=== PATIENT | female | born 1965 | race Caucasian/White ===

== ENCOUNTER → 2018-08-05 | Emergency (ER) | payer OTHER ==
[~2018-08-05] VITALS: Ht 170.2 cm; Wt 95.3 kg
[~2018-08-05] MED LIST: ATORVASTATIN CA40 MG PO; CIPRO500 M1 PO; CRANBERRY500 M3 PO; LISINOPRIL10 MG PO; MANNOSE50 GM PO; NORCO 5-325 TA1 EAC1 PO; PYRIDIUM200 MG PO; VITAMINC500 PO
[2018-08-05 15:59] LABS: URINE BILIRUBIN NEGATIVE (Negative); URINE BLOOD 2+ (Negative); URINE CLARITY CLOUDY; URINE COLOR YELLOW; URINE GLUCOSE-RANDOM NEGATIVE (Negative); URINE KETONES NEGATIVE (Negative); URINE LEUKOCYTES-REFLEX 3+ (Negative); URINE NITRITE-REFLEX NEGATIVE (Negative); URINE PROTEIN 1+ (Negative); URINE UROBILINOGEN 0.2 E.U./dl (0.2-1.0)
[2018-08-05 16:07] LABS: BACTERIA-REFLEX >30 Many /HPF (None Seen); CASTS None Seen /LPF (None Seen); CRYSTALS None Seen /LPF (None Seen); SQUAMOUS 4-10 Moderate /LPF (0-3); URINE RBC 3-10 Few /HPF (0-2); URINE WBC-REFLEX >25 Many /HPF (0-5)
[2018-08-05 16:15] LABS: HEMATOCRIT 42.1 % (37.0-47.0); HEMOGLOBIN 14.1 gm/dL (12.0-15.0); MCH 29.2 pg (26.0-34.0); MCHC 33.5 g/dL (28.0-37.0); MCV 87.2 fL (80.0-100.0); MPV 8.8 fl. (7.2-11.1); NUCLEATED RBCS 0 /100WBC; PLATELET COUNT* 219 thou/uL (150-400); RBC 4.83 mil/uL (4.20-5.00); RDW-CV 13.8 % (10.5-14.5); WBC 19.6 thou/uL (4.0-11.0)
[2018-08-05 16:19] LABS: CALCIUM 9.3 mg/dL (8.5-10.1); CREATININE 1.1 mg/dL (0.6-1.3); POTASSIUM 3.9 mmol/L (3.5-5.1)
[2018-08-05 16:57] LABS: ABSOLUTE LYMPHOCYTES 1.2 thou/uL (0.8-5.3); ABSOLUTE NEUTROPHILS 17.4 thou/uL (1.6-8.1)
[2018-08-05 16:58] LABS: PLATELET ESTIMATE ADEQUATE
[2018-08-05 18:31] VITALS: BP 106/47
== END ==
LOC: M.ERS 15:41
PROVIDERS: Nurse Practitioner
DX: N12 Tubulo-interstitial nephritis, not specified as acute or chronic (principal); F17.200 Nicotine dependence, unspecified, uncomplicated; I10 Essential (primary) hypertension; E78.00 Pure hypercholesterolemia, unspecified; Z88.0 Allergy status to penicillin; Z87.442 Personal history of urinary calculi; Z90.710 Acquired absence of both cervix and uterus; Z90.49 Acquired absence of other specified parts of digestive tract

== ENCOUNTER 2018-08-07 05:47 | Inpatient (IN) | payer OTHER ==
[~2018-08-07] VITALS: Ht 152.4 cm; Wt 97.1 kg
--- NOTE | ~2018-08-07 | CON ---
[address] [address] CONSULTATION Name: BENJAMIN TILLEY Room: [address] IN M.R.#: [id number] Admission: 08/07/18 Attend Phys: Norbert Villarreal, Discharge: 08/10/18 Date of : 69 Report #: [id number] THIS REPORT FOR: //name// CC: Alena Darlene Villarreal HISTORY OF PRESENT ILLNESS: This is a pleasant 53-year-old female who was admitted with pyelonephritis infection. The GI Service has been consulted for evaluation of elevated liver enzymes. The patient reports she presented with back pain and fevers and was treated for pyelonephritis. The patient denies a prior history of hepatitis, jaundice or pruritus. The patient denies any abdominal pain, nausea, vomiting, diarrhea or weight loss. PAST SURGICAL HISTORY: Significant for hysterectomy in 1993, cholecystectomy in 1998. PAST MEDICAL HISTORY: Significant for hypertension and hyperlipidemia. SOCIAL HISTORY: The patient denies smoking, alcohol or recreational drug use. FAMILY HISTORY: There is no family history of colorectal cancer. REVIEW OF SYSTEMS: A comprehensive 10-point review of systems is negative, except what is mentioned in the HPI. PHYSICAL EXAMINATION: VITAL SIGNS: Temperature 36.4, pulse rate 61, respirations 16 and blood pressure 158/90. GENERAL: The patient is alert, awake and oriented x 3. HEENT: Pupils are equal, round and reactive to light and accommodation. Mucous membranes are moist. There is no congestion. LUNGS: Clear to auscultation bilaterally. CARDIOVASCULAR EXAMINATION: Rate and rhythm regular, S1, S2 present. ABDOMEN: Soft. There is no distention, guarding or rigidity. EXTREMITIES: Warm and well perfused. There is no edema. SKIN: Warm and dry. LABORATORY DATA: Hemoglobin 11.9, hematocrit 35.4 and platelet count 199,000 and WBC count 8.6. Sodium 102, potassium 3.6, chloride 107, bicarbonate 23, BUN 7 and creatinine 0.8. Total bilirubin 0.4, AST 24, ALT 92 and alkaline phosphatase 353. Total bilirubin 0.4. Abdominal ultrasound, normal appearance of both kidneys. Abnormality on CAT scan is not seen on ultrasound. There is no lymph node. The patient has had prior cholecystectomy. Normal ultrasound. ASSESSMENT AND PLAN: This is a pleasant 53-year-old female with past medical history of hypertension and hyperlipidemia, admitted [place] [address] CONSULTATION Name: BENJAMIN TILLEY Room: [address]#: [id number] Admission: 08/07/18 Attend Phys: Norbert Villarreal, Discharge: 08/10/18 Date of : 69 Report #: [id number] subsequently treated for it. GI service has been consulted for evaluation of elevated liver enzymes. AST is normal, ALT is 94 and alkaline phosphatase is 353 with normal total bilirubin. The patient does not have any other signs of chronic liver disease at this time. I will recommend getting a repeat comprehensive metabolic panel in 2-4 weeks' time as outpatient and we will pursue further workup if that remains elevated. At this time, I suspect her elevated liver enzymes is related to cholestasis induced by sepsis from the pyelonephritis. Please call the GI service for any questions. Thank you for the consult. By: [id number] Campo MD /nt
[2018-08-07 05:58] VITALS: BP 128/56
[2018-08-07 06:32] LABS: URINE BLOOD 2+ (Negative); URINE CLARITY CLEAR; URINE COLOR DARK YELLOW; URINE GLUCOSE-RANDOM TRACE (Negative); URINE KETONES NEGATIVE (Negative); URINE LEUKOCYTES-REFLEX TRACE (Negative); URINE PROTEIN 1+ (Negative)
[2018-08-07 06:37] LABS: ICTOTEST (BILI CONFIRMATORY) Negative (Negative); URINE BILIRUBIN 1+ (Negative); URINE NITRITE-REFLEX POSITIVE (Negative)
[2018-08-07 06:38] LABS: HEMOGLOBIN 12.9 gm/dL (12.0-15.0); MCH 29.5 pg (26.0-34.0); MCHC 33.9 g/dL (28.0-37.0); MPV 8.9 fl. (7.2-11.1); NUCLEATED RBCS 0 /100WBC; PLATELET COUNT* 190 thou/uL (150-400); RBC 4.37 mil/uL (4.20-5.00); RDW-CV 13.6 % (10.5-14.5); WBC 11.2 thou/uL (4.0-11.0)
[2018-08-07 06:44] LABS: CALCIUM 9.3 mg/dL (8.5-10.1); CREATININE 0.9 mg/dL (0.6-1.3); POTASSIUM 3.7 mmol/L (3.5-5.1)
[2018-08-07 06:47] LABS: BACTERIA-REFLEX 1-9 Few /HPF (None Seen); CASTS None Seen /LPF (None Seen); CRYSTALS None Seen /LPF (None Seen); MUCUS 0-3 Light strn/LPF (None Seen); SQUAMOUS 0-3 Few /LPF (0-3); URINE RBC 3-10 Few /HPF (0-2); URINE WBC-REFLEX 0-5 Rare /HPF (0-5)
[2018-08-07 06:49] LABS: ALBUMIN 2.8 g/dL (3.4-5.0); TOTAL BILIRUBIN 1.5 mg/dL (<0.1-1.0); TOTAL PROTEIN 6.9 g/dL (6.4-8.2)
[2018-08-07 07:12] LABS: ABSOLUTE LYMPHOCYTES 1.3 thou/uL (0.8-5.3); ABSOLUTE MONOCYTES 0.3 thou/uL (0.0-1.2); ABSOLUTE NEUTROPHILS 9.5 thou/uL (1.6-8.1); ANISOCYTOSIS 1+; PLATELET ESTIMATE ADEQUATE; POIKILOCYTOSIS 1+
[2018-08-07 07:41] VITALS: BP 112/63
[2018-08-07 07:45] VITALS: BP 112/63
--- NOTE | 2018-08-07 11:14 | NUR ---
SW met with pt to complete initial assessment, introduce self, and SW role. Pt was sleeping but awoke to say hello. Pt dtr bedside. Pt lives with pt dtr. Pt is independent at home. Pt did not express any dc needs at this time. SW to continue to follow to assist with safe dc planning.
--- NOTE | 2018-08-07 12:58 | NUR ---
Nutrition: Consult for poor intake. Pt admitted with pyelonephritis. Wt: 214#. BG 129, alb 2.8. H/o GB removal, HTN, UTI, renal stones, hyperchol. No N/V today. On clear liquid diet today. Inadequate oral intake R/T diet order AEB poor intake and CLD ordered. Advance pt's diet in timely manner, as appropriate. Mild risk. Will follow per protocol.
[2018-08-07 16:30] VITALS: BP 128/67
--- NOTE | 2018-08-07 18:28 | NUR ---
VSS-AFEBRILE. C/O LEFT FLANK PAIN THAT IS STABBING IN NATURE AND IS PARTIALLY RELIEVED WITH IV MORPHINE. LUNGS CLEAR-ROOM AIR. MILD NAUSEA WITH NO VOMITING SINCE ADMISSION. ACTIVE BS. TOLERATING CLEAR LIQUID DIET. PLACED ON FALL PRECAUTIONS DUE TO EPISODE OF SYNCOPE AT HOME. VERBALIZED UNDERSTANDING OF PLAN OF CARE, AND KNOWS TO CALL FOR ASSISTANCE WHEN NEEDING TO GET OUT OF BED. SCD'S IN PLACE. VOIDING WITHOUT DIFFICULTY, CLOUDY, ORANGE URINE.
[2018-08-08] VITALS: BP 106/40
--- NOTE | 2018-08-08 04:13 | NUR ---
PATIENT TEARFUL DURING THE NIGHT. PT CONTINUED TO SAY SHE WAS OK. PT WAS ABLE TO SLEEP. PT REQUESTED PAIN MEDICATION X2 DURING THIS SHIFT. PT HAD NEW IV PLACED IN LT HAND AFTER THREE ATTEMPTS. FLUIDS INFUSING PER DR ORDER. PT USES CALL LIGHT APPROPRIATELY FOR ASSISTANCE TO BATHROOM. PT WEARING SCD'S. PT DENIES NEEDS AT THIS TIME. FREQUENTLY USED ITEMS AND CALL LIGHT WITHIN REACH AND BED ALARM ON. WILL CONTINUE TO MONITOR.
[2018-08-08 04:45] LABS: HEMATOCRIT 34.9 % (37.0-47.0); HEMOGLOBIN 11.8 gm/dL (12.0-15.0); MCH 29.5 pg (26.0-34.0); MCHC 33.9 g/dL (28.0-37.0); MPV 9.5 fl. (7.2-11.1); RBC 4.01 mil/uL (4.20-5.00); RDW-CV 13.9 % (10.5-14.5); WBC 7.4 thou/uL (4.0-11.0)
[2018-08-08 04:53] LABS: CALCIUM 8.8 mg/dL (8.5-10.1); CREATININE 0.8 mg/dL (0.6-1.3); MAGNESIUM 1.8 mg/dL (1.8-2.4); POTASSIUM 3.4 mmol/L (3.5-5.1)
[2018-08-08 07:45] VITALS: BP 121/71
[2018-08-08 15:48] VITALS: BP 147/82
--- NOTE | 2018-08-08 16:35 | NUR ---
PATIENT HAS BEEN ALERT AND ORIENTED TODAY, VERY PLEASANT. UP WITH STAND BY TO THE BATHROOM, SHOWERED INDEPENDENTLY TODAY. DAUGHTER HAS BEEN AT BEDSIDE TODAY. VITAL SIGNS HAVE BEEN STABLE ON ROOM AIR. SOME PAIN THAT IS CONTROLLED WITH IV PAIN MEDICATIONS. CALL LIGHT IS IN REACH, WILL CONTINUE TO MONITOR.
--- NOTE | 2018-08-08 17:19 | NUR ---
ASSUMED CARE OF PT AT 1645. PT IS UP SITTING IN BEDSIDE CHAIR. READ AND AGREE WITH ASSESSMENT. EDUCATION GIVEN ON DEMAND. HOURLY ROUNDING COMPLETE.
[2018-08-09] VITALS: BP 155/81
[2018-08-09 04:29] LABS: HEMATOCRIT 33.8 % (37.0-47.0); HEMOGLOBIN 11.5 gm/dL (12.0-15.0); MCH 29.5 pg (26.0-34.0); MCHC 34.1 g/dL (28.0-37.0); MCV 86.5 fL (80.0-100.0); MPV 8.6 fl. (7.2-11.1); RBC 3.91 mil/uL (4.20-5.00); WBC 8.3 thou/uL (4.0-11.0)
--- NOTE | 2018-08-09 04:45 | NUR ---
PATIENT SLEPT IN RECLINER ALL NIGHT. PT C/O ITCHING ON HEAD AND CHEST. ONE TIME ORDER RECEIVED FOR BENEDRYL PO AND LEVEQUIN AND MORPHINE DC'D. PT SLEEPING AT THIS TIME. K-PAD PROVIDED FOR PAIN. PT UP AD KERRI IN ROOM TO BATHROOM. PT DENIES NEEDS AT THIS TIME. FREQUENTLY USED ITEMS AND CALL LIGHT WITHIN REACH. WILL CONTINUE TO MONITOR.
[2018-08-09 05:52] LABS: ALBUMIN 2.5 g/dL (3.4-5.0); CALCIUM 8.7 mg/dL (8.5-10.1); CREATININE 0.8 mg/dL (0.6-1.3); MAGNESIUM 1.7 mg/dL (1.8-2.4); POTASSIUM 3.7 mmol/L (3.5-5.1); TOTAL BILIRUBIN 0.9 mg/dL (<0.1-1.0); TOTAL PROTEIN 5.6 g/dL (6.4-8.2)
[2018-08-09 07:35] VITALS: BP 162/69
[2018-08-09 16:45] VITALS: BP 166/80
--- NOTE | 2018-08-09 17:39 | NUR ---
PATIENT A&OX4, ROOM AIR, IV LEFT HAND FLUIDS INFUSSING. UP AD KERRI, STEADY GAIT. C/O PIAN, PARTIAL RELIEF WITH MEDICATION, KPAD FOR EXTRA RELIEF. NO OTHER CONCERNS AT THIS TIME. APPROPRIATE AND COOPORATIVE WITH CARE.
--- NOTE | 2018-08-09 20:17 | CON ---
[address] [address] CONSULTATION Name: BENJAMIN TILLEY Room: [address] IN M.R.#: [id number] Admission: 08/07/18 Attend Phys: Norbert Villarreal, Discharge: Date of : 69 Report #: [id number] THIS REPORT FOR: //name// CC: Alenajillian Colon Norbert Villarreal DATE OF SERVICE: 08/08/2018 Infectious Diseases Consultation REASON FOR CONSULTATION: Evaluate left pyelonephritis. HISTORY OF PRESENT ILLNESS: The patient was a 53-year-old who has had recurring cystitis issues. Noted 1 week ago had the onset of dysuria. Took Pyridium without significant benefit. By the first part of the week, she was having left flank pain, then developed fever and chills, presented to the emergency room on 08/05/2018 where she was diagnosed with left pyelonephritis. Treated with Levaquin. CT scan showed left pyelonephritis without obstruction. White count was [address]. She was able to keep fluids down, so she was discharged to home. Subsequently had a syncopal episode. Started vomiting again and returned on 08/07. Still has left-sided abdominal and flank pain. Vomiting has resolved. Still has anorexia. No fever or chills currently. Still has malaise and anorexia. REVIEW OF SYSTEMS: CONSTITUTIONAL: As above. SKIN: Negative. LYMPH: Negative. HEENT: Negative. CARDIAC: Negative. PULMONARY: Negative. GASTROINTESTINAL: As above. GENITOURINARY: As above. She has had a previous hysterectomy. No vaginal discharge. JOINTS: Negative. ENDOCRINE: Negative. NEUROLOGIC: Negative. PSYCHIATRIC: Negative. ALLERGIES: PENICILLIN. MEDICATIONS: As noted on her MAR, now on Levaquin. PAST MEDICAL HISTORY: Cystitis, nephrolithiasis, hysterectomy, cholecystectomy, hypertension, [place] [address] CONSULTATION Name: BENJAMIN TILLEY Room: [address] IN [facility]#: [id number] Admission: 08/07/18 Attend Phys: Norbert Villarreal, Discharge: Date of : 69 Report #: [id number] FAMILY HISTORY: Noncontributory. SOCIAL HISTORY: Smoker of cigarettes. No significant alcohol history. No HIV risk factors. PHYSICAL EXAMINATION: VITAL SIGNS: Afebrile, hemodynamically stable, alert and cooperative and pleasant, sitting up in her chair. Had some discomfort when she tried to move over to lie in the bed. HEENT: Without scleral icterus. Mouth without lesion. NECK: Supple. SKIN: Without rash. No palpable adenopathy. Moderately obese. LUNGS: Clear. HEART: Regular. ABDOMEN: Soft with tenderness in the suprapubic region and left lower quadrant. CVA tenderness on the left to percussion and palpation. EXTREMITIES: Without edema, cyanosis or clubbing. NEUROLOGIC: With cranial nerves normal. Upper and lower extremity strength was normal. Sensation to touch normal. LABORATORY STUDIES: Hemoglobin 11.8, WBC 7.4, platelet count 165,000. Sodium 134, potassium 3.4, bicarbonate 25, creatinine 0.8. Liver function test note AST 73, ALT 112, alkaline phosphatase 319, bilirubin 1.5. Blood cultures were negative. Urine culture shows E. coli resistant to ampicillin, otherwise sensitive. IMAGING DATA: CT scan of the abdomen and pelvis was evaluated showing changes of pyelonephritis on the left with associated adenopathy in the region. IMPRESSION: 1. Left pyelonephritis due to Escherichia coli. 2. Gastrointestinal issues, I suspect related to her pyelonephritis and sepsis. 3. Elevated liver function tests, suspect related to her infection with sepsis versus possible drug effect. 4. PENICILLIN allergy. RECOMMENDATION: 1. We will continue current antibiotic program considering her allergies and drug sensitivity testing. 2. Repeat liver function tests and make recommendations following this. The patient will require inpatient stay until we can maintain adequate pain control, ensure nutrition and fluid status maintained . <ELECTRONICALLY SIGNED> By: Nj Shannon MD 08/09/182016 [id number] Shannon MD /nt
[2018-08-10] VITALS: BP 132/65
[2018-08-10 04:05] LABS: HEMATOCRIT 35.4 % (37.0-47.0); HEMOGLOBIN 11.9 gm/dL (12.0-15.0); MCH 29.2 pg (26.0-34.0); MCHC 33.7 g/dL (28.0-37.0); MCV 86.8 fL (80.0-100.0); MPV 8.6 fl. (7.2-11.1); RBC 4.08 mil/uL (4.20-5.00); RDW-CV 14.2 % (10.5-14.5); WBC 8.6 thou/uL (4.0-11.0)
[2018-08-10 04:21] LABS: ALBUMIN 2.4 g/dL (3.4-5.0); CALCIUM 8.7 mg/dL (8.5-10.1); CREATININE 0.8 mg/dL (0.6-1.3); MAGNESIUM 1.7 mg/dL (1.8-2.4); POTASSIUM 3.6 mmol/L (3.5-5.1); TOTAL BILIRUBIN 0.4 mg/dL (<0.1-1.0); TOTAL PROTEIN 6.4 g/dL (6.4-8.2)
--- NOTE | 2018-08-10 04:51 | NUR ---
PATIENT SLEPT WELL DURING THIS SHIFT. PT UP AD KERRI TO BATHROOM AND IN HALLWAY WITH STEADY GAIT. PT WITH FLUIDS INFUSING PER DR ORDER. PT REQUESTED TYLENOL X1 AT HS FOR PAIN. PT SLEEPING IN RECLINER. PT SAYS SHE WANTS TO GO HOME TODAY. FREQUENTLY USED ITEMS AND CALL LIGHT WITHIN REACH. WILL CONTINUE TO MONITOR.
[2018-08-10 08:15] VITALS: BP 158/90
[2018-08-10] MEDS ORDERED: BACTRIM DS TAB1 EACH PO (10:39)
[2018-08-10 11:48] LABS: URINE BILIRUBIN NEGATIVE (Negative); URINE BLOOD TRACE (Negative); URINE CLARITY CLEAR; URINE COLOR YELLOW; URINE GLUCOSE-RANDOM NEGATIVE (Negative); URINE KETONES NEGATIVE (Negative); URINE LEUKOCYTES-REFLEX NEGATIVE (Negative); URINE NITRITE-REFLEX NEGATIVE (Negative); URINE PROTEIN NEGATIVE (Negative); URINE SPECIFIC GRAVITY <= 1.005 (1.005-1.030); URINE UROBILINOGEN 0.2 E.U./dl (0.2-1.0)
[2018-08-10 12:48] VITALS: BP 158/90
[2018-08-10 14:07] LABS: HEPATITIS B SURFACE AG Negative (Negative)
--- NOTE | 2018-08-10 14:30 | NUR ---
PATIENT GIVEN DISCHARGE INSTRUCTIONS AND PRESCRIPTIONS. PATIENT VERBALIZED UNDERSTANDING IN REGARDS TO FOLLOW UP APPOINTMENTS, NEW MEDICATIONS, AND S/S TO CALL PHYSICIAN. PATIENT'S IV REMOVED. PATIENT AMBULATED OFF NURSING UNIT WITH NURSING STAFF. DISCHARGED HOME WITH ALL BELONGINGS.
== END 2018-08-10 14:37 | disposition home or self-care (01) | DRG 689 ==
LOC: M.ERS 05:47 → M.3W 06:56 → M.TBA-ER 06:56 → M.3W 07:46
PROVIDERS: Internal Medicine; Personal Emergency Response Attendant; ADMIT Family Medicine
DX: N10 Acute pyelonephritis (principal); E43 Unspecified severe protein-calorie malnutrition; Z68.41 Body mass index [BMI] 40.0-44.9, adult; R65.10 Systemic inflammatory response syndrome (SIRS) of non-infectious origin without acute organ dysfunction; I10 Essential (primary) hypertension; E78.00 Pure hypercholesterolemia, unspecified; B96.20 Unspecified Escherichia coli [E. coli] as the cause of diseases classified elsewhere; E66.01 Morbid (severe) obesity due to excess calories; L27.0 Generalized skin eruption due to drugs and medicaments taken internally; K75.9 Inflammatory liver disease, unspecified; E87.6 Hypokalemia; F17.210 Nicotine dependence, cigarettes, uncomplicated; Z87.442 Personal history of urinary calculi; Z90.49 Acquired absence of other specified parts of digestive tract; Z90.710 Acquired absence of both cervix and uterus; Z79.899 Other long term (current) drug therapy; Z88.0 Allergy status to penicillin